=== PATIENT | female | born 1970 | race Caucasian/White ===

== ENCOUNTER 2017-04-27 18:55 | Emergency (ER) | payer OTHER ==
[2017-04-27] MEDS ORDERED: MORPHINE SULFATE 10 MG/ML SYRINGE IM STA (19:27)
--- NOTE | 2017-04-27 19:27 | ED ---
Back Pain HPI - General Chief Complaint: Back Pain/Injury Stated Complaint: back pain Time Seen by Provider: 04/27/17 19:08 Source: patient Limitations: no limitations - History of Present Illness Initial Comments: 46-year-old female patient was sent to emergency department today requesting prescription for pain medication. Patient states that she has chronic back pain and was discharged from her pain specialist due to having fentanyl show on her drug screen. Patient states that this is and her sister because she had borrowed a fentanyl patch from her mother due to her pain issues. Patient states that she took her last morphine pill yesterday, states she received a prescription on 03/16/2017. Patient states that the pain seems to be getting worse. She states that she has multiple bulging disks and herniated disc. Patient states that she also does not have a primary care physician at this time. She denies any new symptoms. She denies any loss of bowel or bladder control. She denies any radiation of the pain down her legs. Denies any numbness or tingling. She denies any chest pain, shortness of breath, nausea, vomiting, abdominal pain, hematuria, dysuria, urinary frequency or urinary urgency. Denies any trouble with bowel movements. - Related Data Previous Rx's Medication Instructions Recorded Famotidine [Pepcid] 20 mg PO BID tab 07/29/16 Ibuprofen [Motrin] 400 mg PO Q6HR PRN #0 tab 07/29/16 Allergies Allergy/AdvReac Type Severity Reaction Status Date / Time No Known Allergies Allergy Verified 04/27/17 19:02 Review of Systems ROS Statement: Those systems with pertinent positive or pertinent negative responses have been documented in the HPI. ROS Other: All systems not noted in ROS Statement are negative. Past Medical History Past Medical History: Fibromyalgia, Hypertension Additional Past Medical History / Comment(s): neuropathy, djd,bulging disc chronic back pain, cataracts,"heart burn", migaraines, insomnia History of Any Multi-Drug Resistant Organisms: None Reported Past Surgical History: Cholecystectomy, Tubal Ligation Additional Past Surgical History / Comment(s): cleft palate repair Past Anesthesia/Blood Transfusion Reactions: No Reported Reaction Additional Past Anesthesia/Blood Transfusion Reaction / Comment(s): clausterphobia Past Psychological History: Depression Smoking Status: Current every day smoker Past Alcohol Use History: Abuse Past Drug Use History: None Reported - Past Family History Mother Family Medical History: Diabetes Mellitus, Hypertension, Osteoarthritis (OA), Rheumatoid Arthritis (RA), Thyroid Disorder Additional Family Medical History / Comment(s): diverticulitis, thyroid tumor Father History Unknown: Yes Brother(s) Family Medical History: Diabetes Mellitus, Hypertension, Osteoarthritis (OA) Additional Family Medical History / Comment(s): djd, aaa General Exam Limitations: no limitations General appearance: alert, in no apparent distress Neck exam: Present: normal inspection, full ROM. Absent: tenderness, meningismus, lymphadenopathy Respiratory exam: Present: normal lung sounds bilaterally. Absent: respiratory distress, wheezes, rales, rhonchi, stridor Cardiovascular Exam: Present: regular rate, normal rhythm, normal heart sounds. Absent: systolic murmur, diastolic murmur, rubs, gallop, clicks Extremities exam: Present: normal inspection, full ROM, normal capillary refill. Absent: tenderness, pedal edema, joint swelling, calf tenderness Back exam: Present: normal inspection. Absent: tenderness, vertebral tenderness Neurological exam: Present: alert, oriented X3, CN II-XII intact Psychiatric exam: Present: normal affect, normal mood Skin exam: Present: warm, dry, intact, normal color. Absent: rash Course Vital Signs 04/27/17 18:59 Temperature 98.1 F Pulse Rate 94 Respiratory 20 Rate Blood Pressure 190/110 O2 Sat by Pulse 99 Oximetry Medical Decision Making - Medical Decision Making 46-year-old female patient presented to emergency department today for evaluation and request for pain medication prescription. Patient has chronic back pain and has been treated in the past by pain specialist however she was discharged or inappropriate use of pain medications. Patient physical exam is unremarkable, patient is neurologically intact. There is no acute injury causing her pain. Patient will be given 2 mg morphine IM in the department however she'll not be given a prescription for pain medication. Patient is instructed that she needs to follow up with a primary care physician or pain specialist to obtain pain medication prescriptions. She is instructed to return here for any new, worsening, or concerning symptoms. Patient verbalizes understanding and agrees this plan. Disposition Clinical Impression: Chronic back pain Disposition: HOME SELF-CARE Condition: Good Instructions: Chronic Back Pain (ED) Additional Instructions: Obtain pain prescriptions from your primary care physician. Apply heat to the painful areas. Take ibuprofen and tylenol for pain control. Follow up with her primary care physician for recheck since possible. Return here immediately for any new, worsening, or concerning symptoms. Referrals: None,Stated [Primary Care Provider] - 1-2 days Time of Disposition: 19:19
[2017-04-27] MEDS ORDERED: MORPHINE SULFATE 2 MG/ML SYRINGE IM STA (19:35)
[2017-04-27 19:48] VITALS: BP 159/87; PULSE 87; RESP 18; TEMP 98.3
== END 2017-04-27 19:47 | disposition home or self-care (01) ==
LOC: EC 18:55
DX: G89.29 Other chronic pain (principal); M54.9 Dorsalgia, unspecified; F17.200 Nicotine dependence, unspecified, uncomplicated
CPT/HCPCS: 99283; 96372; J2270

== ENCOUNTER 2022-05-05 12:41 | Inpatient (IN) | payer MEDICAID, OTHER ==
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
[2022-05-06] MEDS ORDERED: HALOPERIDOL LACTATE 5 MG/ML 1 ML VIAL IM PRN (03:21)
[2022-05-06] MEDS ORDERED: LORazepam 1 MG TAB PO PRN (03:21)
[2022-05-06] MEDS ORDERED: ACETAMINOPHEN TAB 325 MG TAB PO PRN (03:21)
[2022-05-06] MEDS ORDERED: MAG HYDROX/AL HYDROX/SIMETH 30 ML CUP PO PRN (03:21)
[2022-05-06] MEDS ORDERED: MAGNESIUM HYDROXIDE 2,400 MG/10 ML CUP PO PRN (03:21)
[2022-05-06] MEDS ORDERED: LORazepam 2 MG/ML INJ IM PRN (03:27)
[2022-05-06] MEDS ORDERED: haloperidoL 5 MG TAB PO PRN (03:28)
[2022-05-06] MEDS: NICOTINE 14MG/24HR PATCH TRANSDERM SCH (09:38)
[2022-05-06] MEDS ORDERED: NALOXONE 0.4 MG/ML 1 ML VIAL IM PRN (12:06)
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
[2022-05-06] MEDS: clonazePAM 0.5 MG TAB PO SCH (20:38)
[2022-05-06] MEDS ORDERED: NON FORMULARY DRUG (Buprenorphine Hcl/Naloxone Hcl [Suboxone 8 Mg-2 Mg Sl Film] 1 EACH Fil SUBLINGUAL SCH (21:00)
[2022-05-06] MEDS ORDERED: QUEtiapine 100 MG TAB PO SCH (21:00)
[2022-05-07] MEDS: NICOTINE 14MG/24HR PATCH TRANSDERM SCH (08:43)
[2022-05-07] MEDS: hydroCHLOROthiazide 25 MG TAB PO SCH (08:44)
[2022-05-07] MEDS: amLODIPine 10 MG TAB PO SCH (08:44)
[2022-05-07] MEDS: clonazePAM 0.5 MG TAB PO SCH ×2 (08:45→20:32)
[2022-05-07 11:59] LABS: ALT 13 U/L (4-34); AST 23 U/L (14-36); African American GFR (CKD) >90 (>60 ml/min/1.73 sqM); Albumin 4.6 g/dL (3.5-5.0); Alkaline Phosphatase 72 U/L (38-126); Anion Gap 10 mmol/L; Bilirubin, Delta 0.3 mg/dL (0.0-0.2); Blood Urea Nitrogen 9 mg/dL (7-17); Calcium 9.4 mg/dL (8.4-10.2); Carbon Dioxide 31 mmol/L (22-30); Chloride 100 mmol/L (98-107); Glucose 90 mg/dL (74-99); Non-African American GFR(CKD) >90 (>60 ml/min/1.73 sqM); Potassium 3.6 mmol/L (3.5-5.1); Sodium 141 mmol/L (137-145); Total Bilirubin 0.3 mg/dL (0.2-1.3); Total Protein 7.3 g/dL (6.3-8.2)
--- NOTE | 2022-05-07 12:00 | P.PN ---
Progress Note - Text Progress Note Date: 05/07/22 Interval History: Patient was seen resting in bed and was directable and agreeable to speak with clinical writer in her room., The patient continues to display significant paranoid and delusional thoughts and behaviors. The patient reports that her brother has paid off multiple patients in order to harass her here on the psychiatric unit. She vehemently states that she heard her brother's voice speaking to her neighbors as well as whispering to her this morning. She maintains that this is not a psychotic symptom but is "actually really happening." She continues to maintain that she is not experiencing any mental illness in that she is only here in the hospital because she needs a place to stay safe and away from him. She reports no visual hallucinations. She denies any suicidal or homicidal ideation, intention, and/or plan. She reports that she will take the Risperdal I will be prescribed however believes she does not need it. Mental Status Exam: General Appearance: Patient appears to be stated age is alert, directable, and cooperative. Behavior: Patient is seated upright in bed and appears to display some psychomotor agitation. Speech: Patient's speech is fluent and nonpressured. Hyperverbal. Mood/Affect: Mood is "not good," affect is suspicious and guarded. Suicidality/Homicidality: Patient denies having any suicidal or homicidal ideation intent or plan. Perceptions: Patient denies any visual hallucinations however patient endorses auditory hallucinations. Though content/process: The patient is very delusional. Memory and concentration: AOX3, grossly intact for the purposes of this session Judgment and insight: Very poor Vital Signs Temp 97.8 F 05/07/22 06:50 Pulse 55 L 05/07/22 08:47 Resp 16 05/07/22 06:50 BP 124/67 05/07/22 08:47 Pulse Ox 99 05/07/22 06:50 FiO2 Laboratory Results - Last 24 Hours 05/07/22 10:30 Sodium 141 Potassium 3.6 Chloride 100 Carbon Dioxide 31 H Anion Gap 10 BUN 9 Creatinine 0.75 Est GFR (CKD-EPI)AfAm >90 Est GFR (CKD-EPI)NonAf >90 Glucose 90 Calcium 9.4 Total Bilirubin 0.3 Conjugated Bilirubin 0.0 Unconjugated Bilirubin 0.0 Delta Bilirubin 0.3 H AST 23 ALT 13 Alkaline Phosphatase 72 Total Protein 7.3 Albumin 4.6 Assessment Acute psychosis, suspect secondary to polysubstance abuse (Adderall, marijuana, Suboxone, benzos) Plan: -Patient continues to meet criteria for inpatient psychiatric admission for symptom stabilization and safety. Patient has signed adult voluntary form and medication consent and was placed in patient's chart. -Medications: Discontinue Seroquel. Start Risperdal 2 mg by mouth twice a day for acute psychosis We will begin to taper Klonopin over the next few days. -When necessary Haldol for agitation/aggression. -NRT - nicotine patch -SW on board for discharge planning. Encouraged the patient to participate in milieu.
[2022-05-07 12:17] LABS: Anisocytosis Slight; Basophils % (A) 1 %; Eosinophils # (A) 0.2 k/uL (0-0.7); Eosinophils % (A) 3 %; HCT 36.6 % (34.0-46.0); HGB 11.4 gm/dL (11.4-16.0); Hypochromasia Marked; Lymphocytes % (A) 45 %; MCH 24.3 pg (25.0-35.0); MCHC 31.1 g/dL (31.0-37.0); Mean Platelet Volume 9.9; Microcytosis Slight; Monocytes # (A) 0.3 k/uL (0-1.0); Monocytes % (A) 6 %; Neutrophils # (A) 1.9 k/uL (1.3-7.7); Neutrophils % (A) 43 %; Platelet Count 252 k/uL (150-450); RBC 4.69 m/uL (3.80-5.40); RDW 17.5 % (11.5-15.5); WBC 4.5 k/uL (3.8-10.6)
[2022-05-07 18:55] LABS: Chol/HDL Ratio 2.13 Ratio; LDL Cholesterol,Calculated 73.9 mg/dL (0.0-131.0)
[2022-05-07] MEDS: risperiDONE 2 MG TAB PO SCH (20:32)
--- NOTE | 2022-05-08 04:12 | CONS ---
CONSULTATION CHIEF COMPLAINT: Major depression, schizophrenia, and paranoid delusions. HISTORY OF PRESENT ILLNESS: This is another admission for this 51-year-old white female, who has a significant mental and health past history. She also has narcotic abuse problems and has recently been on Suboxone to keep her off other habit-forming substances. She came into the office the day prior to admission with paranoid delusions and extreme anxiety and depression. She was not homicidal or suicidal. She finally agreed to go to the emergency room for psychiatric evaluation and was admitted. REVIEW OF SYSTEMS: She denies any headaches, neurologic problems, chest pain, shortness of breath, abdominal pain, nausea, vomiting, diarrhea, melena, urinary complaints, etc. Past medical history, family history personal and social histories can all be found in her admitting summary and otherwise unremarkable. PHYSICAL EXAMINATION: VITAL SIGNS: Blood pressure is 142/86 with a pulse of 89 and she is afebrile. GENERAL: She appeared to be still somewhat agitated. SKIN: Color is normal. HEAD, EARS, EYES, NOSE, MOUTH AND THROAT: Normal. CHEST: Clear. CARDIAC: Normal. ABDOMEN: Soft and nontender. EXTREMITIES: Normal. IMPRESSION: 1. Major depression. 2. Paranoid delusions. 3. History of substance abuse. 4. Anxiety. RECOMMENDATIONS: None. We will keep her on her Suboxone. MMODL / IJN: [id number] /
[2022-05-08] MEDS: clonazePAM 0.5 MG TAB PO SCH ×2 (08:42→20:00)
[2022-05-08] MEDS: amLODIPine 10 MG TAB PO SCH (08:42)
[2022-05-08] MEDS: risperiDONE 2 MG TAB PO SCH ×2 (08:43→20:00)
[2022-05-08] MEDS: hydroCHLOROthiazide 25 MG TAB PO SCH (08:44)
[2022-05-08] MEDS: NICOTINE 14MG/24HR PATCH TRANSDERM SCH (08:44)
--- NOTE | 2022-05-08 12:10 | P.PN ---
Progress Note - Text Progress Note Date: 05/08/22 Interval History: Patient was seen resting in bed and was directable and agreeable to speak with health underwriter in her room. Currently, the patient is reporting no suicidal or homicidal ideation, intention, and/or plan. She is not reporting any auditory or visual hallucinations today. She is denying any significant paranoid symptoms today compared to yesterday. When confronted with her believes that her brother paid off people in psychiatric unit to harass her, the patient e xpresses that she did not believe/things despite her verbally saying this yesterday. Her insight continues to be poor. She is otherwise not reporting any issues regarding her medications and denies any issues regarding her sleep or her appetite. Mental Status Exam: General Appearance: Patient appears to be stated age is alert, directable, and cooperative. Behavior: Patient is seated upright in bed and appears to display some psychomotor agitation. Speech: Patient's speech is fluent and nonpressured. Hyperverbal. Mood/Affect: Mood is "I'm okay," affect is expansive and intense. Suicidality/Homicidality: Patient denies having any suicidal or homicidal ideation intent or plan. Perceptions: Patient is denying any auditory or visual hallucinations today. Though content/process: Linear and logical in short conversation today. Memory and concentration: AOX3, grossly intact for the purposes of this session Judgment and insight: Poor but mildly improving Assessment Acute psychosis, suspect secondary to polysubstance abuse (Adderall, marijuana, Suboxone, benzos) Plan: -Patient continues to meet criteria for inpatient psychiatric admission for symptom stabilization and safety. Patient has signed adult voluntary form and medication consent and was placed in patient's chart. -Medications: Continue Risperdal 2 mg by mouth twice a day for acute psychosis. Consider titration to 3 mg by mouth twice a day if necessary over the weekend. We will discontinue Klonopin on Wednesday. -When necessary Haldol for agitation/aggression. -NRT - nicotine patch -SW on board for discharge planning. Encouraged the patient to participate in milieu.
[2022-05-09] MEDS: amLODIPine 10 MG TAB PO SCH (08:47)
[2022-05-09] MEDS: hydroCHLOROthiazide 25 MG TAB PO SCH (08:48)
[2022-05-09] MEDS: clonazePAM 0.5 MG TAB PO SCH ×2 (08:48→20:56)
[2022-05-09] MEDS: risperiDONE 2 MG TAB PO SCH (08:48)
[2022-05-09] MEDS: NICOTINE 14MG/24HR PATCH TRANSDERM SCH (08:50)
--- NOTE | 2022-05-09 15:21 | P.PN ---
Progress Note - Text Progress Note Date: 05/09/22 Interval History: Patient was seen in interview room. Patient reports doing well on current medications and denies side effects. She feels that the Risperdal has been helpful for her calming her down. She is interested in increasing the dose starting tonight. She is agreeable with receiving a long-acting injectable in the future. She states that she spoken with her daughter and things have been resolving slowly. She reports fair mood, denies anxiety, reports good sleep and appetite. Currently, the patient is reporting no suicidal or homicidal ideation, intention, and/or plan. She is not reporting any auditory or visual hallucinations today. She is denying any significant paranoid symptoms today. However, patient will need further medication titration for full stabilization to prevent decompensation again. Mental Status Exam: General Appearance: Patient appears to be stated age is alert, directable, and cooperative. Behavior: No tics/tremors/agitation Speech: Patient's speech is fluent and not hyperverbal Mood/Affect: Mood is "alright," affect is mood congruent Suicidality/Homicidality: Patient denies having any suicidal or homicidal ideation intent or plan. Perceptions: Patient is denying any auditory or visual hallucinations today. Though content/process: Linear and logical in short conversation today. Memory and concentration: AOX3, grossly intact for the purposes of this session Judgment and insight: Fair Assessment Acute psychosis, suspect secondary to polysubstance abuse (Adderall, marijuana, Suboxone, benzos) Plan: -Patient continues to meet criteria for inpatient psychiatric admission for symptom stabilization and safety. Patient has signed adult voluntary form and medication consent and was placed in patient's chart. -Medications: Increase Risperdal to 3 mg by mouth twice a day for acute psychosis. We will discontinue Klonopin on Wednesday. -When necessary Haldol for agitation/aggression. -NRT - nicotine patch -SW on board for discharge planning. Encouraged the patient to participate in milieu.
[2022-05-09] MEDS: risperiDONE 1 MG TAB PO SCH (20:56)
[2022-05-10] MEDS: clonazePAM 0.5 MG TAB PO SCH (08:44)
[2022-05-10] MEDS: amLODIPine 10 MG TAB PO SCH (08:45)
[2022-05-10] MEDS: hydroCHLOROthiazide 25 MG TAB PO SCH (08:45)
[2022-05-10] MEDS: NICOTINE 14MG/24HR PATCH TRANSDERM SCH (08:45)
[2022-05-10] MEDS: risperiDONE 1 MG TAB PO SCH ×2 (08:45→20:18)
[2022-05-10 15:38] LABS: Appearance,Urine Clear (Clear); Bilirubin,Urine Negative (Negative); Blood,Urine Negative (Negative); Color,Urine Light Yellow; Glucose,Urine (UA) Negative (Negative); Ketones,Urine Negative (Negative); Leukocyte Esterase,Urine Negative (Negative); Nitrite,Urine Negative (Negative); PH, Urine 6.5 (5.0-8.0); Protein,Urine Negative (Negative); Specific Gravity,Urine 1.015 (1.001-1.035); Urobilinogen,Urine <2.0 mg/dL (<2.0)
--- NOTE | 2022-05-10 17:43 | P.PN ---
Progress Note - Text Progress Note Date: 05/10/22 Interval History: Patient was seen bedside. Patient reports doing well on current medications and denies side effects. She feels that the Risperdal has been helpful for her calming her down. She reports after receiving Risperdal qHS, she had some trouble sleeping. However, this is likely because Klonopin was discontinued. She was agreeable with receiving Melatonin if needed. She is agreeable with receiving a long-acting injectable in the future. Her daughter has been calling frequently to ask about [place]. She reports fair mood, denies anxiety, reports good sleep and appetite. Currently, the patient is reporting no suicidal or homicidal ideation, intention, and/or plan. She is not reporting any auditory or visual hallucinations today. She is denying any significant paranoid symptoms today. However, patient will need further medication titration for full stabilization to prevent decompensation again. Mental Status Exam: General Appearance: Patient appears to be stated age is alert, directable, and cooperative. Behavior: No tics/tremors/agitation Speech: Patient's speech is fluent and not hyperverbal Mood/Affect: Mood is "alright," affect is mood congruent Suicidality/Homicidality: Patient denies having any suicidal or homicidal ideation intent or plan. Perceptions: Patient is denying any auditory or visual hallucinations today. Though content/process: Linear and logical in short conversation today. Memory and concentration: AOX3, grossly intact for the purposes of this session Judgment and insight: Fair Assessment Acute psychosis, suspect secondary to polysubstance abuse (Adderall, marijuana, Suboxone, benzos) Plan: -Patient continues to meet criteria for inpatient psychiatric admission for symptom stabilization and safety. Patient has signed adult voluntary form and medication consent and was placed in patient's chart. -Medications: Risperdal 3 mg by mouth twice a day for acute psychosis. Melatonin for sleep PRN -When necessary Haldol for agitation/aggression. -NRT - nicotine patch -SW on board for discharge planning. Encouraged the patient to participate in milieu.
[2022-05-10 23:01] LABS: Urine Alcohol Negative (Negative); Urine Barbiturate Negative (Negative); Urine Cocaine Negative (Negative); Urine Methadone Negative (Negative); Urine Opiates Negative (Negative); Urine Phencyclidine Negative (Negative)
[2022-05-11] MEDS: NICOTINE 14MG/24HR PATCH TRANSDERM SCH (08:12)
[2022-05-11] MEDS: hydroCHLOROthiazide 25 MG TAB PO SCH (08:13)
[2022-05-11] MEDS: risperiDONE 1 MG TAB PO SCH (08:13)
[2022-05-11] MEDS: amLODIPine 10 MG TAB PO SCH (08:13)
[2022-05-11] MEDS ORDERED: PALIPERIDONE IM 234 MG/1.5 ML SYG IM STA (09:16)
--- NOTE | 2022-05-11 11:31 | P.PN ---
Progress Note - Text Progress Note Date: 05/11/22 Interval History: Patient was seen wandering the hallways and was directable and agreeable to speak with automobile and property underwriter in the office. Currently, the patient does express a desire to be discharged. However, she is agreeable to transition to [facility] today in anticipation for discharge tomorrow. She is not reporting any suicidal or homicidal ideation, intention, and/or plan. She is not reporting any auditory or visual hallucinations. She is denying any paranoia or other delusions today. She reports no issues regarding her sleep or her appetite. She has been adherent with her medication is not endorsing any significant side effects. Mental Status Exam: General Appearance: Patient appears to be stated age is alert, directable, and cooperative. Behavior: Patient is calmly seated without any agitated behavior. Speech: Patient's speech is fluent and nonpressured. Mood/Affect: Mood is improving mildly, affect is congruent and constricted. Suicidality/Homicidality: Patient denies having any suicidal or homicidal ideation intent or plan. Perceptions: Patient denies any visual hallucinations and denies any auditory hallucinations Though content/process: There is no evidence of any delusional thought content and thought process is linear and goal-directed. Memory and concentration: AOX3, grossly intact for the purposes of this session Judgment and insight: Improving mildly Vital Signs Temp 97.7 F 05/11/22 06:38 Pulse 87 05/11/22 06:38 Resp 16 05/11/22 06:38 BP 134/66 05/11/22 06:38 Pulse Ox 99 05/11/22 06:38 FiO2 Intake & Output 05/10/22 05/11/22 05/11/22 18:59 06:59 18:59 Weight 75.8 kg Laboratory Results - Last 24 Hours 05/10/22 05/10/22 05/10/22 15:00 15:00 15:00 Urine Color Light Yellow Urine Appearance Clear Urine pH 6.5 Ur Specific [place] 1.015 Urine Protein Negative Urine Glucose (UA) Negative Urine Ketones Negative Urine Blood Negative Urine Nitrite Negative Urine Bilirubin Negative Urine Urobilinogen <2.0 Ur Leukocyte Esterase Negative Urine HCG, Qual Not Detected Urine Opiates Screen Negative Urine Methadone Screen Negative Ur Propoxyphene Screen Negative Urine Barbiturates Negative Ur Phencyclidine Scrn Negative Ur Amphetamine Screen Negative U Benzodiazepines Scrn Negative Urine Cocaine Screen Negative U Cannabinoids Screen Positive A Urine Alcohol Negative Assessment Acute psychosis, suspect secondary to polysubstance abuse (Adderall, marijuana, Suboxone, benzos) Plan: -Patient continues to meet criteria for inpatient psychiatric admission for symptom stabilization and safety. Patient has signed adult voluntary form and medication consent and was placed in patient's chart. -Medications: Discontinue oral Risperdal. Invega Sustenna 234 mg IM will be administered today. -When necessary Haldol for agitation/aggression. -NRT - nicotine patch -SW on board for discharge planning. Encouraged the patient to participate in milieu.
[2022-05-12 07:11] VITALS: RESP 17; TEMP 96.9
[2022-05-12] MEDS: amLODIPine 10 MG TAB PO SCH (08:23)
[2022-05-12] MEDS: hydroCHLOROthiazide 25 MG TAB PO SCH (08:23)
[2022-05-12 08:25] VITALS: BP 129/70; PULSE 90
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
== END 2022-05-12 11:36 | disposition home or self-care (01) | DRG 885 ==
LOC: EC 12:41 → 3MHU 05-06 03:18
PROVIDERS: ADMIT Psychiatry & Neurology Psychiatry; ATTEND Psychiatry & Neurology Psychiatry
DX: F23 Brief psychotic disorder (principal); F22 Delusional disorders; I10 Essential (primary) hypertension; M79.7 Fibromyalgia; F32.9 Major depressive disorder, single episode, unspecified; F11.10 Opioid abuse, uncomplicated; F15.10 Other stimulant abuse, uncomplicated; F13.90 Sedative, hypnotic, or anxiolytic use, unspecified, uncomplicated; F12.10 Cannabis abuse, uncomplicated; G62.9 Polyneuropathy, unspecified; F41.9 Anxiety disorder, unspecified; F10.11 Alcohol abuse, in remission; G89.29 Other chronic pain; M54.9 Dorsalgia, unspecified; R12 Heartburn; G47.00 Insomnia, unspecified; Z20.822 Contact with and (suspected) exposure to COVID-19; G43.909 Migraine, unspecified, not intractable, without status migrainosus; F17.290 Nicotine dependence, other tobacco product, uncomplicated; Z71.51 Drug abuse counseling and surveillance of drug abuser; Z79.899 Other long term (current) drug therapy; Z63.5 Disruption of family by separation and divorce; Z81.1 Family history of alcohol abuse and dependence; Z82.49 Family history of ischemic heart disease and other diseases of the circulatory system; Z83.3 Family history of diabetes mellitus
CPT/HCPCS: 80053; 80061; 80306; 81003; 81025; 82075; 82248; 83036; 84443; 85025; 87635; 99285